=== PATIENT | male | born 1950 | race Caucasian/White ===

== ENCOUNTER → 2021-02-08 15:02 | Outpatient (CLI) | payer MEDICARE, SELFPAY ==
[2021-02-08 17:36] LABS: M R Staph aureus DNA By PCR Negative (Negative); Probe Check PASS; Specimen Processing Control PASS; Staph aureus DNA By PCR NEGATIVE (Negative)
== END ==
PROVIDERS: Referring Provider Podiatrist; Visit Provider Podiatrist
DX: L03.116 Cellulitis of left lower limb (principal)
CPT/HCPCS: 87070; 87075; 87077; 87186; 87205; 87640

== ENCOUNTER → 2021-02-12 11:30 | Outpatient (CLI) | payer MEDICARE, SELFPAY ==
[2021-02-12 13:35] LABS: Absolute Lymphocyte Count 1.41 X10^3/uL (0.83-4.51); Absolute Neutrophil Count 2.8 X10^3/uL (2.0-7.7); Basophil# 0.03 X10^3/uL; Basophil% 0.6 % (0-1); Eosinophils% 2.1 % (0-5); Hematocrit 36.5 % (40-54); Hemoglobin 11.1 g/dL (13.0-16.5); Lymphocyte # 1.41 X10^3/ul (0.83-4.51); Lymphocyte % 29.9 % (19-41); Mean Corp Hgb Conc 30.4 g/dL (32-36); Mean Corpuscular Hgb 24.8 pg (27.0-32.0); Mean Corpuscular Volume 81.5 fL (80-94); Mean Platelet Vol. 10.5 fl (6.2-12.0); Monocyte# 0.38 X10^3/uL; Monocyte% 8.1 % (0-10); NRBC Flagged by Analyzer 0 % (0-5); Neutrophil # 2.78 X10^3/uL (2.7-7.7); Neutrophil % 58.9 % (47-70); Platelet Count 214 K/mm3 (150-450); RBC Distribution Width CV 14.9 % (11.6-14.6); RBC Distribution Width SD 44.1 fl (35.1-43.9); Red Blood Count 4.48 M/mm3 (4.6-6.2); White Blood Count 4.7 K/mm3 (4.4-11.0)
[2021-02-12 13:36] LABS: Erythrocyte Sedimentation Rate 14 mm/hr (0-20)
[2021-02-12 14:01] LABS: ALB/GLOB Ratio 0.9 RATIO (0.9-2.4); AST(SGOT) 19 U/L (15-37); Alanine Aminotransfer ALT/SGPT 24 U/L (16-61); Albumin, Serum 3.4 g/dL (3.2-5.0); Alkaline Phosphatase 130 U/L (45-117); Anion Gap 6 (5-15); BUN 39 mg/dL (7-18); BUN/Creat Ratio 17.2 RATIO (10-20); CRP < 2.90 mg/L (0.0-3.0); Calcium,Total 8.8 mg/dL (8.5-10.1); Chloride 104 mmol/L (98-107); Creatinine, Serum 2.27 mg/dL (0.70-1.30); EST Glomerular Filtration Rate 30 mL/min (>60); Est Glom Filt Rate - Afr Amer 37 mL/min (>60); Globulin 3.7 g/dL (2.2-4.2); Glucose 187 mg/dL (74-106); Potassium 4.3 mmol/L (3.5-5.1); Protein, Total 7.1 g/dL (6.4-8.2); Sodium Level 140 mmol/L (136-145)
== END ==
PROVIDERS: PCP Student in an Organized Health Care Education/Training Program; Referring Provider Podiatrist; Visit Provider Podiatrist
DX: L03.116 Cellulitis of left lower limb (principal); L97.522 Non-pressure chronic ulcer of other part of left foot with fat layer exposed; K51.90 Ulcerative colitis, unspecified, without complications
CPT/HCPCS: 36415; 80053; 85025; 85652; 86140

== ENCOUNTER → 2021-05-06 | Outpatient (CLI) | payer MEDICARE, SELFPAY ==
[2021-05-06 19:20] LABS: M R Staph aureus DNA By PCR Negative (Negative); Probe Check PASS; Specimen Processing Control PASS; Staph aureus DNA By PCR NEGATIVE (Negative)
== END | disposition home or self-care (01) ==
PROVIDERS: PCP Student in an Organized Health Care Education/Training Program; Referring Provider Podiatrist; Visit Provider Podiatrist
DX: L03.116 Cellulitis of left lower limb (principal); L97.522 Non-pressure chronic ulcer of other part of left foot with fat layer exposed
CPT/HCPCS: 87070; 87075; 87077; 87186; 87205; 87640

== ENCOUNTER → 2021-05-23 13:51 | Outpatient (CLI) | payer MEDICARE, SELFPAY ==
--- NOTE | 2021-05-23 14:07 | MRI_ITS ---
STUDY: MRI LEFT MIDFOOT REASON FOR EXAM: Male, 70 years old. SEPTIC MPJ, CELULITUS, ABCESS, osteomyelitis, puncture wound distal fourth MT area 3 months ago TECHNIQUE: Standardized fat and water weighted pulse sequences were obtained in all 3 orthogonal planes. COMPARISON: None. FINDINGS: Advanced tarsometatarsal joint arthrosis at the fourth and fifth digits. Mild first tarsometatarsal joint arthrosis. Normal second and third tarsometatarsal joints. Advanced first metatarsophalangeal joint arthrosis. Normal second through fifth metatarsophalangeal joints. Mild first interphalangeal joint arthrosis. Mild/moderate joint space narrowing at the digits. Mild first metatarsal sesamoid joint arthrosis. No acute fracture line. No acute dislocation. No acute cortical destruction. Reactive bone marrow edema/contusion at the first metatarsal phalangeal joint (sagittal image 25 series 3). Normal Lisfranc ligament. Minimal flexor tenosynovitis at the first and third digits (short axis image 18 series 6). Moderate flexor tenosynovitis at the master knot of Cliff (axial image 136). Normal extensor tendons. Diffuse soft tissue swelling at the midfoot/forefoot (short axis image 27 series 6). Diffuse muscle atrophy. Early organizing fluid collection/phlegmon at the undersurface of the foot between the third and fourth digits (sagittal image 10 series 9 and axial image 27 series 3) with region of interest measuring approximately 2.3 cm x 2.7 cm.. Mild plantar fascial thickening. Trace metatarsophalangeal joint effusions. MRI/Lower Ext/No Jt/w/o IMPRESSION: No acute osteomyelitis Early organizing plantar surface fluid collection/phlegmon between the third and fourth digits (consider postcontrast evaluation) Soft tissue swelling/cellulitis with flexor tenosynovitis Degenerative changes, as above, and trace metatarsophalangeal joint effusions Electronically Signed: Jean Hoyt DO at 9:05 EDT Tel , Service support ,
== END ==
PROVIDERS: PCP Student in an Organized Health Care Education/Training Program; Visit Provider Podiatrist
DX: M86.9 Osteomyelitis, unspecified (principal); M00.072 Staphylococcal arthritis, left ankle and foot; B95.8 Unspecified staphylococcus as the cause of diseases classified elsewhere; L03.116 Cellulitis of left lower limb
CPT/HCPCS: 73718

== ENCOUNTER 2021-06-06 19:45 | Emergency (ER) | payer MEDICARE, SELFPAY ==
[2021-06-06 19:46] VITALS: BP 134/74; PULSE 69; RESP 18; TEMP 37; O2SAT 100; BMI 34.8
--- NOTE | 2021-06-06 20:05 | RAD_ITS ---
STUDY: X-RAY CHEST REASON FOR EXAM: Male, 70 years old. Chest pain TECHNIQUE: Frontal radiograph COMPARISON: None. FINDINGS: Median sternotomy wires. Minimal bibasilar atelectasis/scarring. Normal size heart. Normal mediastinum and maldonado. Normal visualized pulmonary arteries. Normal visualized aortic arch and descending thoracic aorta. Normal visualized thoracic spine. Normal visualized ribs, clavicles, and shoulders. There is no demonstrated abnormality of the visualized soft tissue structures of the upper abdomen. RAD/Chest 1 View (Portable) IMPRESSION: No acute cardiopulmonary process. Electronically Signed: Pancho De León MD at 20:38 EDT Tel , Service support ,
--- NOTE | 2021-06-06 20:05 | EKG12_ITS ---
Test Reason : CP Blood Pressure : / mmHG Vent. Rate : 063 BPM Atrial Rate : 063 BPM P-R Int : 192 ms QRS Dur : 108 ms QT Int : 450 ms P-R-T Axes : 054 -01 087 degrees QTc Int : 460 ms Normal sinus rhythm Nonspecific T wave abnormality Prolonged QT Abnormal ECG Confirmed by AIDAN WEBBER, BRANDON ([id number]), development editor TIMUR MCMILLAN ([id number]) on 06/07/2021 9:11:22 AM Referred By: JESSICA Confirmed By:BRANDON BERMUDEZ MD
[2021-06-06 20:06] VITALS: O2SAT 99
[2021-06-06 20:12] LABS: Absolute Lymphocyte Count 1.65 X10^3/uL (0.83-4.51); Absolute Neutrophil Count 4.7 X10^3/uL (2.0-7.7); Basophil# 0.03 X10^3/uL; Basophil% 0.4 % (0-1); Eosinophils% 1.4 % (0-5); Hematocrit 36.2 % (40-54); Hemoglobin 11.1 g/dL (13.0-16.5); Lymphocyte # 1.65 X10^3/ul (0.83-4.51); Lymphocyte % 22.9 % (19-41); Mean Corp Hgb Conc 30.7 g/dL (32-36); Mean Corpuscular Hgb 24.2 pg (27.0-32.0); Mean Platelet Vol. 10.7 fl (6.2-12.0); Monocyte# 0.65 X10^3/uL; NRBC Flagged by Analyzer 0 % (0-5); Neutrophil # 4.74 X10^3/uL (2.7-7.7); Neutrophil % 65.9 % (47-70); Platelet Count 161 K/mm3 (150-450); RBC Distribution Width CV 17.2 % (11.6-14.6); RBC Distribution Width SD 48.5 fl (35.1-43.9); Red Blood Count 4.58 M/mm3 (4.6-6.2); White Blood Count 7.2 K/mm3 (4.4-11.0)
[2021-06-06 20:27] LABS: Anion Gap 5 (5-15); BUN 46 mg/dL (7-18); BUN/Creat Ratio 20.8 RATIO (10-20); Calcium,Total 8.5 mg/dL (8.5-10.1); Chloride 105 mmol/L (98-107); Creatinine, Serum 2.21 mg/dL (0.70-1.30); EST Glomerular Filtration Rate 31 mL/min (>60); Est Glom Filt Rate - Afr Amer 38 mL/min (>60); Glucose 118 mg/dL (74-106); Potassium 3.8 mmol/L (3.5-5.1); Sodium Level 141 mmol/L (136-145); Troponin-I HS 13 pg/mL (3.0-78.0)
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
[2021-06-06 20:56] LABS: D-Dimer Quantitative (DVT/PE) 0.46 FEU/ug/m (0.27-0.49)
[2021-06-06 21:03] VITALS: O2SAT 86
[2021-06-06 21:11] VITALS: O2SAT 94
[2021-06-06 21:39] LABS: BNP,B-Type NATRIURETIC PEPTIDE 48.9 pg/mL (0-100)
[2021-06-06 22:03] LABS: Troponin-I HS 14 pg/mL (3.0-78.0)
[2021-06-06 22:08] VITALS: BP 107/59; PULSE 54; RESP 12; O2SAT 96
[2021-06-06 22:23] VITALS: BP 125/66; PULSE 60; RESP 15; O2SAT 98
== END 2021-06-06 22:30 | disposition home or self-care (01) ==
PROVIDERS: Emergency Provider Student in an Organized Health Care Education/Training Program; PCP Student in an Organized Health Care Education/Training Program
DX: R07.9 Chest pain, unspecified (principal); R06.02 Shortness of breath; I10 Essential (primary) hypertension; E11.9 Type 2 diabetes mellitus without complications; G47.30 Sleep apnea, unspecified; Z95.1 Presence of aortocoronary bypass graft; Z79.4 Long term (current) use of insulin; Z79.02 Long term (current) use of antithrombotics/antiplatelets; Z79.899 Other long term (current) drug therapy; Z86.16 Personal history of COVID-19
CPT/HCPCS: 71045; 80048; 83880; 84484; 85025; 85379; 93005; 99285; A4216

== ENCOUNTER 2021-12-31 21:44 | Emergency (ER) | payer MEDICARE, SELFPAY ==
[2021-12-31] VITALS (9 sets, daily range): BP systolic 136–155; BP diastolic 67–78; PULSE 56–59; RESP 14–35; TEMP 36.1–36.5; O2SAT 95–98; BMI 35.2
--- NOTE | 2021-12-31 21:47 | CT_ITS ---
INDICATION: Neuro deficit, acute, stroke suspected EXAMINATION: CT BRAIN - CT Head Stroke Protocol W/O Contrast Injection TECHNIQUE: Multiple axial images were obtained of the head without intravenous contrast. A radiation dose optimization technique was used for this scan. IV Contrast dosage and agent: None. COMPARISON: None. FINDINGS: BRAIN PARENCHYMA: No intra- or extra-axial hemorrhage. No intracranial mass or mass effect. Queen/white matter differentiation is maintained and there is no blurring of the basal ganglia. There is no hyperdense vessel. There is significant intimal calcifications of the cavernous carotid as well as the bilateral intracranial vertebral arteries. The left supraclinoid internal carotid artery shows calcification extending abnormally in the cephalic direction concerning for possible aneurysm versus abnormal tortuous vessel. Again there is no evidence of cranial hemorrhage. Posterior fossa structures are unremarkable. CSF SPACES: Appropriate for age. No hydrocephalus. Basal cisterns are uneffaced. CALVARIUM, SKULL BASE, PARANASAL SINUSES AND MASTOID AIR CELLS: Mild maxillary sinus mucosal thickening. Other paranasal sinuses, mastoid air cells and middle ears are clear. No discrete lytic or blastic abnormalities. ORBITS: Both globes, extraocular muscles, optic nerves and retrobulbar fat appear unremarkable. ASPECTS Score for Acute Strokes: 10 CT/STROKE Brain/Head without Cont IMPRESSION: No acute intracranial pathology. Abnormal cephalad extension of supraclinoid left ICA intimal calcifications may represent aneurysm versus tortuous vessel. Consider CT angiography. N.B. : The above Results were Read Back by Asad Ferraro DO to Dr. Rob Irby MD, and understanding confirmed on 12/31/2021 22:06:37 (ET). Electronically Signed: Asad Ferraro DO at 22:09 EDT ,
--- NOTE | 2021-12-31 21:47 | EKG12_ITS ---
Test Reason : STROKE ALERT Blood Pressure : / mmHG Vent. Rate : 055 BPM Atrial Rate : 055 BPM P-R Int : 188 ms QRS Dur : 108 ms QT Int : 458 ms P-R-T Axes : 055 -09 073 degrees QTc Int : 438 ms Sinus bradycardia Nonspecific T wave abnormality Abnormal ECG Confirmed by KATHERIN WEBBER, NITO ([id number]), editorial director TIMUR MCMILLAN ([id number]) on 01/02/2022 11:09:19 AM Referred By: DANGELO Confirmed By:NITO PANDEY MD
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
[2021-12-31 22:02] LABS: Absolute Lymphocyte Count 1.59 X10^3/uL (0.83-4.51); Absolute Neutrophil Count 4.4 X10^3/uL (2.0-7.7); Basophil# 0.02 X10^3/uL; Basophil% 0.3 % (0-1); Eosinophil# 0.17 X10^3/uL; Eosinophils% 2.5 % (0-5); Hemoglobin 12.9 g/dL (13.0-16.5); Lymphocyte # 1.59 X10^3/ul (0.83-4.51); Lymphocyte % 23.4 % (19-41); Mean Corp Hgb Conc 31.5 g/dL (32-36); Mean Corpuscular Hgb 26.9 pg (27.0-32.0); Mean Corpuscular Volume 85.6 fL (80-94); Mean Platelet Vol. 10.6 fl (6.2-12.0); Monocyte# 0.62 X10^3/uL; Monocyte% 9.1 % (0-10); NRBC Flagged by Analyzer 0 % (0-5); Neutrophil # 4.38 X10^3/uL (2.7-7.7); Neutrophil % 64.4 % (47-70); Platelet Count 148 K/mm3 (150-450); RBC Distribution Width SD 53.3 fl (35.1-43.9); Red Blood Count 4.79 M/mm3 (4.6-6.2); White Blood Count 6.8 K/mm3 (4.4-11.0)
[2021-12-31 22:03] LABS: POSITIVE COUNT NO; POSITIVE DIFFERENTIAL NO; POSITIVE MORPHOLOGY NO
[2021-12-31 22:05] LABS: Bedside Glucose 129 mg/dL (74-106)
[2021-12-31 22:11] LABS: International Normalized Ratio 1.2; Prothrombin Time (Protime)PT. 14.6 SECONDS (11.7-14.9)
[2021-12-31 22:12] LABS: Partial Thromboplast Time 28.1 Seconds (24.1-36.2)
[2021-12-31 22:25] LABS: Anion Gap 5 (5-15); BUN 42 mg/dL (7-18); BUN/Creat Ratio 18.1 RATIO (10-20); Calcium,Total 8.9 mg/dL (8.5-10.1); Chloride 107 mmol/L (98-107); Creatinine, Serum 2.32 mg/dL (0.70-1.30); EST Glomerular Filtration Rate 29 mL/min (>60); Est Glom Filt Rate - Afr Amer 36 mL/min (>60); Estimated Creatinine Clearance 29.28 ml/min; Glucose 124 mg/dL (74-106); Potassium 4.2 mmol/L (3.5-5.1); Sodium Level 141 mmol/L (136-145); Troponin-I HS 8 pg/mL (3.0-78.0)
[2021-12-31 22:36] LABS: Mucous, Urine 0 SEEN /hpf (<or=2+); Red Blood Cells-Urine 0 SEEN /hpf (0-5); Squamous Epithelial Cells - UA 0 SEEN /hpf (0-5); White Blood Cells 0 SEEN /hpf (0-5)
[2021-12-31 22:58] LABS: Color, Urine Yellow (Yellow); Glucose, Dipstick Normal (Normal); Ketone-Dipstick Negative (Negative); Leukocyte Esterase-Dipstick Negative /ul (Negative); Nitrite-Dipstick Negative (Negative); Occult Blood-Urine Negative /ul (Negative); Protein-Dipstick Negative (Negative); Urine Bilirubin Dipstick Negative (Negative); Urine Clarity Clear (Clear); Urine Urobilinogen Normal (Normal)
[2021-12-31 23:16] LABS: Bacteria RARE /hpf (None Seen)
== END 2021-12-31 23:10 | disposition short-term general hospital (02) ==
PROVIDERS: Emergency Provider Emergency Medicine; PCP Student in an Organized Health Care Education/Training Program; Visit Provider Emergency Medicine
DX: I63.9 Cerebral infarction, unspecified (principal); G83.24 Monoplegia of upper limb affecting left nondominant side; E11.9 Type 2 diabetes mellitus without complications; Z79.4 Long term (current) use of insulin; R41.89 Other symptoms and signs involving cognitive functions and awareness; R29.708 NIHSS score 8; I10 Essential (primary) hypertension; M19.90 Unspecified osteoarthritis, unspecified site; Z79.02 Long term (current) use of antithrombotics/antiplatelets; Z79.82 Long term (current) use of aspirin; Z95.1 Presence of aortocoronary bypass graft; Z79.899 Other long term (current) drug therapy
CPT/HCPCS: 51702; 70450; 80048; 81001; 82962; 84484; 85025; 85610; 85730; 93005; 96365; 99285; J2997; A4216